=== PATIENT | female | born 1935 | race Caucasian/White ===

== ENCOUNTER 2017-08-18 21:04 | Emergency (ER) | payer MEDICARE, OTHER | END 2017-08-18 23:22 | disposition home or self-care (01) | LOC: ERS 21:04 | DX: E11.649 Type 2 diabetes mellitus with hypoglycemia without coma (principal); I10 Essential (primary) hypertension; E78.5 Hyperlipidemia, unspecified; I25.10 Atherosclerotic heart disease of native coronary artery without angina pectoris; K21.9 Gastro-esophageal reflux disease without esophagitis; Z79.82 Long term (current) use of aspirin; Z79.899 Other long term (current) drug therapy; Z79.84 Long term (current) use of oral hypoglycemic drugs | CPT/HCPCS: 36416; 99285 ==

== ENCOUNTER 2017-10-17 08:16 | Observation (INO) | payer MEDICARE, OTHER ==
[2017-10-17 09:10] LABS: #Eosinphils 0.1 thou/uL (0.0-0.7); #Lymphocytes 1.1 thou/uL (1.20-3.40); #Monocytes 0.7 thou/uL (0.11-0.59); #Neutrophils 6.2 thou/uL (1.40-6.50); %Basophils 0.5 % (0.0-1.0); %Eosinophils 1.6 % (0.0-10.0); %Lymphocytes 13.8 % (21.0-51.0); %Neutrophils 76.2 % (42.0-75.0); Mean Corpuscular HGB CONC 32.6 g/dL (32.0-36.0); Mean Corpuscular Hemoglobin 31.7 pg (27.0-31.0); Mean Corpuscular Volume 97.3 fl (81.0-99.0); Mean Platelet Volume 7.1 fL (7.4-10.4); Platelet Count 211 thou/uL (130-400); RBC Distribution Width 13.2 % (11.5-14.5); Red Blood Cell (RBC) Count 3.79 mill/uL (4.20-5.40); White Blood Cell (WBC) Count 8.2 thou/uL (4.8-10.8)
[2017-10-17 09:29] LABS: Bilirubin Negative (Negative); Blood, Urine Negative (Negative); Clarity CLOUDY (Clear); Glucose, Urine (Dipstick) Negative (Negative); Leukocyte Moderate (Negative); Nitrite Positive (Negative); Protein, Urine (Dipstick) Negative (Neg-Trace); Specific Gravity, Urine 1.015 (1.002-1.036); Urobilinogen 0.2 mg/dL (0.2-1.0)
[2017-10-17 09:32] LABS: ALT (SGPT) Less than 7 U/L (8-55); AST (SGOT) 15 U/L (5-34); Albumin 3.4 g/dL (3.4-4.8); Alkaline Phosphatase 79 U/L (40-150); Anion Gap 15 mmol/L (10-20); BUN (Urea Nitrogen) 22 mg/dL (9.8-20.1); Bilirubin, Total 0.4 mg/dL (0.2-1.2); Calc. Creatinine Clearance 0 mL/min (70-130); Carbon Dioxide 22 mmol/L (23-31); Chloride 106 mmol/L (98-107); Estimated GFR-MDRD 28; Globulin 3.5 g/dL (2.4-3.5); Glucose 82 mg/dL (83-110); Potassium 3.7 mmol/L (3.5-5.1); Protein, Total 6.9 g/dL (6.0-8.3); Sodium 139 mmol/L (136-145)
[2017-10-17 09:34] LABS: Pathc Cast-AUWi Flag 1.49 (0-2.49)
[2017-10-17 09:48] LABS: Bacteria/HPF 4+ HPF (None Seen); Hyaline Casts/LPF 0-3 HYALINE CAST LPF (0-3 Hyaline); RBC/HPF 0-3 HPF (0-3)
--- NOTE | 2017-10-17 10:24 | RAD ---
CHEST 1 VIEW: Date: 10/17/17 COMPARISON: 03/15/17. HISTORY: Weakness. Hypoglycemia. FINDINGS: Stable sternotomy wires, coronary artery calcifications. Heart size is normal. There is atheroscleros is of the aorta. Pulmonary vessels and hilum are normal. Costophrenic angles are clear. No masses or consolidation. No pneumothorax or osseous abnormalities. IMPRESSION: 1. No acute cardiopulmonary process. 2. Atherosclerosis of aorta. 3. Coronary artery disease. POS: [facility]
[2017-10-17] MEDS ORDERED: Ondansetron ODT 4 MG TAB PO PRN (12:23)
[2017-10-17] MEDS ORDERED: Ondansetron HCl/PF 4 MG/2 ML Vial IVP PRN (12:23)
[2017-10-17] MEDS ORDERED: Acetaminophen 325 MG TAB PO PRN (12:24)
[2017-10-17] MEDS ORDERED: Sodium Chloride 0.9% 1,000 ML IV SCH (12:30)
[2017-10-17] MEDS ORDERED: Dextrose 5% in Water 1,000 ML IV PRN (12:32)
[2017-10-17] MEDS ORDERED: Dextrose 50% Abboject 50 ML SYRINGE SLOW IVP PRN (12:32)
[2017-10-17 12:35] VITALS: BMI 34.7
--- NOTE | 2017-10-17 12:59 | HP ---
DATE OF ADMISSION: 10/17/2017 CHIEF COMPLAINT: Hypoglycemia, acute onset. HISTORY OF PRESENT ILLNESS: The patient is an 82-year-old female, who was brought to the e mergency room by EMS after she had an episode of seeding and staring at one spot of not being respons theodore to her this morning when she was checked by EMS, her glucose was down to 44. She was giv en glucagon, but there was a problem with the IV access, so she was brought to the emergency room for further evaluation and her glycemia was running low around 42-54. She was given oral food and some glucose orally and her glycemia went up to 82. Apparently, she is taking insulin long acting 20 unit s at night and she had similar episodes 2-3 weeks ago when she was brought to the emergency room and got stabilized and sent home. Also, during this ER visit, she was found to have some urinary tract i nfection and some acute kidney injury on the top of chronic kidney injury. The decision was made to admit her for observation to stabilize her glycemia and then send her home most likely tomorrow. PAST MEDICAL HISTORY: Positive for: 1. Coronary artery disease and status post stenting. 2. Diabetes mellitus type 2. 3. Hypertension. 4. Chronic kidney disease. 5. Chronic diastolic heart failure. 6. Morbid obesity. 7. Right-sided pulmonary nodule. 8. History of sepsis with Proteus bacteremia. 9. Hypothyroidism. PAST SURGICAL HISTORY: 1. Coronary artery bypass graft surgery. 2. PCI with stenting. 3. Hernia repair. 4. Tonsillectomy. 5. Hemorrhoidectomy. ALLERGIES: Multiple to IODINE, AMOXICILLIN, METFORMIN, METOPROLOL, METRONIDAZOLE, SULFA and RANEXA. CURRENT MEDICATIONS: Potassium, Ranexa, Nexium, Januvia, metoprolol, Lasix, Benicar, isosorbide and statin along with insulin, unknown name of insulin 20 units at night. FAMILY HISTORY: She does not know her father. Her mother had diabetes and passed in her 80s. SOCIAL HISTORY: She denies any alcohol use, tobacco use or illicit drug use. CODE STATUS: FULL. Surrogate decision maker is her , Jens Kwok. REVIEW OF SYSTEMS: CONSTITUTIONAL: Negative for fever and chills. EYES: Negative for eye pain and eye discharge. ENT: Negative for epistaxis and nasal congestion. CARDIOVASCULAR: Negative for palpitations and chest pain. RESPIRATORY: Negative for shortness of breath and cough. GASTROINTESTINAL: Negative for nausea and vomiting. GENITOURINARY: Negative for dysuria and hematuria. SKIN: Negative for rash or erythema. PSYCHIATRIC: Negative for suicidal or homicidal ideations. PHYSICAL EXAMINATION: VITAL SIGNS: Blood pressure is 126/56, pulse is 59, respiratory rate is 25 and pulse oximetry is 99% on room air. Her temperature is 98.3, it was 96.1 rectally, so she was somewhat hypothermic, most l ikely secondary to hypoglycemia. HEENT: Her head is atraumatic, normocephalic. She looks tired, somewhat sick and weak. Her pupils are responding to light properly. Sclerae nonicteric. Conjunctivae pinkish. Oral mucosa is moist. NECK: Supple, no lymphadenopathy. LUNGS: Clear. HEART: S1, S2 normal. No S3, no S4, no any murmur. ABDOMEN: Soft, nontender, bowel sounds are present, no organomegaly. EXTREMITIES: There is 1-2+ peripheral edema similar bilaterally. NEUROLOGICAL EXAMINATION: She is alert and oriented x4. There are no any sensory or motor deficits present. Cranial nerves are intact. LABORATORY AND X-RAY FINDINGS: Showed white count of 8.2, hemoglobin 12.0, hematocrit 36.9, and plat elet count is 211. Chemistries showed CO2 22, BUN 22, creatinine 1.74, glucose 882, ALT less than 7. The rest of chemistry was within normal limits. Magnesium was 2.3. Urinalysis showed some nitrite s positive, moderate leukocyte esterase, 11-20 wbc's, 4-6 squamous epithelial cells and 4+ bacteria. Chest x-ray personally reviewed by me showed status post coronary artery bypass graft and otherwise, no issues and EKG showed junctional rhythm at 55 with Q-waves in precordial leads. IMPRESSION: 1. Protracted hypoglycemic episode which is second episode. She had one approximately 2-3 weeks ago when she came to the Emergency Room and was treated and sent home. Most likely, she is just on too much medications. She is on oral hypoglycemics and insulin. We tried to identify the full list of m edications she is on. Her is going to go home and bring all medications she is taking, so re conciled this and for now we are going to hold all her medications, which can lower glucose level and we will check her glycemia every hour x3 and then every 2 hours x2, then a.c. and at bedtime. 2. Prerenal azotemia which is acute, most likely chronic kidney injury. She received 1 liter of nor mal saline in the emergency room, so we are going to probably Hep-Lock her since she has 1-2+ periphe ral edema. 3. Diabetes mellitus. She will be watched for her hypoglycemia. 4. Coronary artery disease, status post stenting, stable. 4. Hypothyroidism. 5. Chronic diastolic heart failure. 6. Right-sided pulmonary nodule per history. 7. History of sepsis with Proteus bacteremia. So, plan is admission above observation, IV Hep-Lock. Condition is fair. Activity: Bed rest and ba throom privileges with assistance. Accu-Cheks as mentioned above every 1 hour x3, then every 2 hours x2, then a.c. and at bedtime. We will reconcile her meds when the list is available from now, which she is not going to have any hypoglycemics obviously and she will be on deep venous thrombosis proph ylaxis with heparin 5000 units every 8 hours subcutaneously.
[2017-10-17] MEDS: Heparin 5,000 UNITS/ML VIAL SC SCH ×2 (14:05→20:57)
[2017-10-17] MEDS: Sodium Chloride 0.9% 1,000 ML IV SCH (14:05)
[2017-10-17] MEDS: Cipro 250 MG TAB PO SCH ×2 (14:05→20:02)
[2017-10-18] MEDS: Sodium Chloride 0.9% 1,000 ML IV SCH ×2 (01:25→12:36)
[2017-10-18 05:58] LABS: Anion Gap 15 mmol/L (10-20); BUN (Urea Nitrogen) 17 mg/dL (9.8-20.1); Calc. Creatinine Clearance 43 mL/min (70-130); Calcium 8.6 mg/dL (7.8-10.44); Carbon Dioxide 17 mmol/L (23-31); Chloride 111 mmol/L (98-107); Estimated GFR-MDRD 39; Glucose 99 mg/dL (83-110); Potassium 4.3 mmol/L (3.5-5.1); Sodium 139 mmol/L (136-145)
[2017-10-18] MEDS: Cipro 250 MG TAB PO SCH ×2 (06:20→21:02)
[2017-10-18] MEDS: Heparin 5,000 UNITS/ML VIAL SC SCH ×3 (07:57→21:02)
[2017-10-18] MEDS ORDERED: Potassium Chloride 10 MEQ TAB PO SCH (10:00)
[2017-10-18] MEDS: Furosemide 40 MG TAB PO SCH (10:22)
--- NOTE | 2017-10-18 10:30 | PRG ---
DATE OF SERVICE: 10/18/2017 SUBJECTIVE: The patient is seen and examined at bedside. She is quite confused. She pulled out on IV last night, so there is a significant change in her mental status. OBJECTIVE: VITAL SIGNS: Blood pressure is 134/80, temperature is 99.3, pulse is 78, respirations 16, and O2 sat uration is 98%. HEENT: Her head is atraumatic, normocephalic. Eyes: PERRLA. Sclerae are anicteric. Conjunctivae pinkish. Oral mucosa is moist. NECK: Supple, no lymphadenopathy. LUNGS: Few crackles at both bases. No wheezing. CARDIOVASCULAR: S1, S2 normal, no S3, no S4, or any murmur. ABDOMEN: Soft, nontender. Bowel sounds are present, no organomegaly. EXTREMITIES: No clubbing, cyanosis. There is 1-1+ peripheral edema similar bilateral in both lower extremities. LABORATORY DATA: Showed sodium of 139, potassium 4.3, chloride 111, CO2 17, BUN 17, creatinine 1.29, glucose 99. Her glycemia is ranging from 77-175. IMPRESSION: 1. Hypoglycemia, corrected. All her hypoglycemic medications were put on hold. We are going to try to use oral. No long-acting insulin and we will see what are the regimen she needs to be on. 2. Prerenal azotemia, which is acute on chronic with IV fluids. Creatinine is better. We are going to stop IV fluids. 3. Diabetes mellitus. 4. Coronary artery disease, status post stenting, stable. 5. Cough. Apparently, she had some cough prior to this hospitalization, she never told us about thi s. This is most likely viral. She is on Cipro for her urinary tract infection, which should help he r congestion, but most likely this is viral. 6. Hypothyroidism. 7. Urinary tract infection, urine culture is still pending. We will continue Cipro. 8. Chronic diastolic dysfunction/heart failure. 9. Right-sided pulmonary nodule per history. 10. History of sepsis with Proteus bacteremia. PLAN: The patient was supposed to go home today, but she has a change in her mental status. We will keep her on Cipro. The mental status change is most likely related to urinary tract infection, but according to her , she gets confused on and off and so she has some probably baseline dementia . At this point, I recommend to keep her additional 24 hours. Continue current regimen and continue Accu-Cheks a.c. and at bedtime and deep venous thrombosis prophylaxis. The patient's roberto t the list of the medications she is on finally, so we can use her home medications except for long-a cting insulin. We will see whether she is not becoming hypoglycemic on her oral regimen and this wou ld be the base to discharge her home on that regimen.
[2017-10-18] MEDS ORDERED: Dextrose 50% Abboject 50 ML SYRINGE SLOW IVP PRN (16:43)
[2017-10-18] MEDS ORDERED: Dextrose 5% in Water 1,000 ML IV PRN (16:43)
[2017-10-18] MEDS ORDERED: Rosuvastatin 10 MG TAB PO SCH (21:00)
[2017-10-18] MEDS: Metoprolol Tartrate 50 MG TAB PO SCH (21:02)
[2017-10-19] MEDS: Cipro 250 MG TAB PO SCH (05:23)
[2017-10-19] MEDS: Sodium Chloride 0.9% 1,000 ML IV SCH (05:23)
[2017-10-19] MEDS ORDERED: Potassium Chloride 10 MEQ TAB PO SCH (08:00)
[2017-10-19] MEDS: Metoprolol Tartrate 50 MG TAB PO SCH (08:21)
[2017-10-19] MEDS: Heparin 5,000 UNITS/ML VIAL SC SCH (08:21)
[2017-10-19] MEDS: Furosemide 40 MG TAB PO SCH (08:21)
[2017-10-19] MEDS ORDERED: Aspirin 81 mg Enteric Coated Tablet PO SCH (09:00)
[2017-10-19] MEDS ORDERED: Alogliptin 25 MG TAB PO SCH (09:00)
[2017-10-19 10:19] VITALS: BP 100/64; TEMP 98.8
--- NOTE | 2017-10-19 22:13 | DIS ---
DATE OF ADMISSION: 10/17/2017 DATE OF DISCHARGE: 10/19/2017 PRIMARY CARE PHYSICIAN: Igor Santos M.D. DISCHARGE DIAGNOSES: 1. Urinary tract infection. No culture sent. 2. Metabolic encephalopathy. 3. Hypoglycemia, secondary to decreased intake and insulin. 4. Diabetes mellitus, type 2, without known complications. 5. Weakness. CONSULTATIONS: None. PROCEDURES: None. HISTORY AND PHYSICAL: Ms. Acevedo is a pleasant 82-year-old female, who was admitted by Dr. Neelima murphy back on 10/17/2017. She presented to the Emergency Department for altered mental status and low blood sugar. Found to have a glucose of 44 and was subsequently admitted for UTI. HOSPITAL COURSE: The patient was seen and examined by Dr. Yao. Her insulins were held and s he was placed on observation. She was given IV fluids, as her creatinine was increased from her base line. She was watched on her blood sugars, and started on antibiotics with Cipro. Overnight, 10/17/2017 to 10/18/2017, the patient improved remarkably. Her creatinine returned normal , and her mental status was improved, and was slated to go home. She had some more confusion, as her sugar dropped a little bit, so she was watched again overnight. Today, she is awake and alert and oriented x3. Sugars have been normal to high normal. She is onesimo ating her antibiotics. Otherwise, stable for discharge with outpatient followup. PHYSICAL EXAMINATION: The patient was seen and examined on the day of discharge. Discharge plan and disposition were discussed with the patient [id number] at the bedside. DISCHARGE MEDICATIONS: 1. Aspirin 81 mg daily. 2. Cipro 250 mg p.o. b.i.d. for 5 more days. 3. Nexium 40 mg b.i.d. 4. Lasix 40 mg daily. 5. Isosorbide mononitrate 30 mg p.o. b.i.d. 6. Metoprolol tartrate 50 mg p.o. b.i.d. 7. Benicar 20 mg daily. 8. Potassium chloride 10 mEq daily. 9. Ranexa 500 mg p.o. b.i.d. 10. Crestor 10 mg p.o. at bedtime. 11. Januvia 100 mg p.o. daily. 12. Thyro-Gold one cap daily. Her Tarceva has been held at present due to hyperlipidemia, to be addressed by Dr. Santos. DISCHARGE DIET: Heart healthy diabetic diet recommended. DISCHARGE ACTIVITY: As tolerated. FOLLOWUP: With primary care physician within a week. Follow up with Dr. Bola Michelle, Cardiologi , as scheduled.
--- NOTE | 2017-11-07 14:59 | EKG ---
Test Reason : Blood Pressure : / mmHG Vent. Rate : 055 BPM Atrial Rate : 055 BPM P-R Int : 000 ms QRS Dur : 066 ms QT Int : 452 ms P-R-T Axes : 000 026 063 degrees QTc Int : 432 ms Junctional rhythm Septal infarct , age undetermined Abnormal ECG Confirmed by ZAINA ROSARIO D.O. ([id number]), production editor RALPH CAMARA ([id number]) on 11/07/2017 2:58:57 PM Referred By: Confirmed By:ZAINA ROSARIO D.O.
== END 2017-10-19 15:49 | disposition home or self-care (01) ==
LOC: ERS 08:16 → T4-B 12:30
PROVIDERS: ADMIT Internal Medicine; ATTEND Internal Medicine
DX: E11.649 Type 2 diabetes mellitus with hypoglycemia without coma (principal); N39.0 Urinary tract infection, site not specified; G93.41 Metabolic encephalopathy; I13.0 Hypertensive heart and chronic kidney disease with heart failure and stage 1 through stage 4 chronic kidney disease, or unspecified chronic kidney disease; E11.22 Type 2 diabetes mellitus with diabetic chronic kidney disease; N18.9 Chronic kidney disease, unspecified; I50.32 Chronic diastolic (congestive) heart failure; I25.10 Atherosclerotic heart disease of native coronary artery without angina pectoris; E03.9 Hypothyroidism, unspecified; R91.1 Solitary pulmonary nodule; R79.89 Other specified abnormal findings of blood chemistry; E66.01 Morbid (severe) obesity due to excess calories; Z68.33 Body mass index [BMI] 33.0-33.9, adult; Z88.1 Allergy status to other antibiotic agents; Z95.5 Presence of coronary angioplasty implant and graft; Z88.2 Allergy status to sulfonamides; Z88.8 Allergy status to other drugs, medicaments and biological substances; Z91.041 Radiographic dye allergy status; Z91.048 Other nonmedicinal substance allergy status; Z79.4 Long term (current) use of insulin; Z79.899 Other long term (current) drug therapy; Z98.890 Other specified postprocedural states; Z86.19 Personal history of other infectious and parasitic diseases; Z83.3 Family history of diabetes mellitus
CPT/HCPCS: 71010; 80048; 80053; 82947; 82962 ×3; 83735; 85025; 93005; 96360; 96361 ×3; 99285; G0378 ×2; 36415; 36416; 81003; 81015; A4216; J1644

== ENCOUNTER 2019-05-19 09:01 | Emergency (ER) | payer MEDICARE ==
[2019-05-19 09:29] LABS: #Basophils 0.1 thou/uL (0.0-0.2); #Eosinphils 0.1 thou/uL (0.0-0.7); #Lymphocytes 1.7 thou/uL (1.20-3.40); #Monocytes 0.4 thou/uL (0.11-0.59); %Basophils 1.2 % (0.0-1.0); %Eosinophils 2.5 % (0.0-10.0); %Monocytes 8.3 % (0.0-10.0); %Neutrophils 57.1 % (42.0-75.0); Hemoglobin 12.2 g/dL (12.0-16.0); Mean Corpuscular HGB CONC 32.9 g/dL (32.0-36.0); Mean Corpuscular Hemoglobin 32.6 pg (27.0-31.0); Mean Corpuscular Volume 99.1 fL (78.0-98.0); Mean Platelet Volume 7.8 fL (7.4-10.4); Platelet Count 156 thou/uL (130-400); Red Blood Cell (RBC) Count 3.74 mill/uL (4.20-5.40); White Blood Cell (WBC) Count 5.3 thou/uL (4.8-10.8)
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
--- NOTE | 2019-05-19 09:36 | RAD ---
Exam: Chest one view HISTORY:Emergency exam, posttraumatic pain Comparison: 10/17/2017 FINDINGS: Lungs: Mild interstitial prominence bilaterally Cardiac silhouette:Stable postoperative appearance. There is vascular calcification Pulmonary vessels: Stable Pleural Spaces: Clear Pneumothorax: None Osseous abnormalities: None of acuity. . IMPRESSION: Mild, bilateral interstitial opacities which may be on the basis of interstitial lung dis ease
[2019-05-19 09:54] LABS: ALT (SGPT) 18 U/L (8-55); AST (SGOT) 19 U/L (5-34); Albumin 3.7 g/dL (3.4-4.8); Alkaline Phosphatase 74 U/L (40-150); Anion Gap 11 mmol/L (10-20); BUN (Urea Nitrogen) 31 mg/dL (9.8-20.1); Bilirubin, Total 0.8 mg/dL (0.2-1.2); Calc. Creatinine Clearance 0 mL/min (70-130); Calcium 9.3 mg/dL (7.8-10.44); Carbon Dioxide 28 mmol/L (23-31); Chloride 105 mmol/L (98-107); Estimated GFR-MDRD 24; Glucose 128 mg/dL (83-110); Potassium 4.3 mmol/L (3.5-5.1); Protein, Total 6.7 g/dL (6.0-8.3); Sodium 140 mmol/L (136-145)
--- NOTE | 2019-05-19 10:23 | RAD ---
AP PELVIS LEFT HIP 3 VIEWS: HISTORY: Hip pain. Low back pain. FINDINGS: There are mild degenerative changes at both hips noted on the AP pelvis film. Two views of the left hip show mild degenerative change with mild spurring from the femoral head and acetabulum. Femoral h ead contour is preserved. No fracture or acute abnormality. SI joints are symmetric. IMPRESSION: Mild degenerative changes left hip. POS: [facility]
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
== END 2019-05-19 12:38 | disposition home or self-care (01) ==
LOC: ERS 09:01
DX: S32.019A Unspecified fracture of first lumbar vertebra, initial encounter for closed fracture (principal); I25.10 Atherosclerotic heart disease of native coronary artery without angina pectoris; E11.9 Type 2 diabetes mellitus without complications; K21.9 Gastro-esophageal reflux disease without esophagitis; E78.5 Hyperlipidemia, unspecified; I10 Essential (primary) hypertension; M19.90 Unspecified osteoarthritis, unspecified site; V89.2XXA Person injured in unspecified motor-vehicle accident, traffic, initial encounter
CPT/HCPCS: 70450; 71045; 71250; 74177; 80053; 85025; 96360; 96361; G0390

== ENCOUNTER 2020-09-13 12:13 | Emergency (ER) | payer MEDICARE ==
[2020-09-13] MEDS ORDERED: Ondansetron PF 4 MG/2 ML Vial ONE (13:00)
[2020-09-13 13:27] LABS: #Eosinphils 0.1 thou/uL (0.0-0.7); #Lymphocytes 1.7 thou/uL (1.20-3.40); #Monocytes 0.8 thou/uL (0.11-0.59); #Neutrophils 2.9 thou/uL (1.40-6.50); %Basophils 0.5 % (0.0-1.0); %Eosinophils 1.2 % (0.0-10.0); %Lymphocytes 31.1 % (21.0-51.0); %Monocytes 13.8 % (0.0-10.0); %Neutrophils 53.4 % (42.0-75.0); Hemoglobin 11.2 g/dL (12.0-16.0); Mean Corpuscular HGB CONC 33.8 g/dL (32.0-36.0); Mean Corpuscular Hemoglobin 33.8 pg (27.0-31.0); Mean Corpuscular Volume 99.9 fL (78.0-98.0); RBC Distribution Width 12.8 % (11.5-14.5); Red Blood Cell (RBC) Count 3.32 mill/uL (4.20-5.40); White Blood Cell (WBC) Count 5.4 thou/uL (4.8-10.8)
[2020-09-13 13:45] LABS: MDiff Complete? YES; Mean Platelet Volume 6.9 fL (7.4-10.4); Platelet Count 119 thou/uL (130-400); Platelet Morphology Comment Appears Decreased; Polychromasia SLIGHT = 2-3 cells (100X) (0-2/hpf)
[2020-09-13 13:49] LABS: ALT (SGPT) 46 U/L (8-55); AST (SGOT) 62 U/L (5-34); Albumin 3.1 g/dL (3.4-4.8); Alkaline Phosphatase 57 U/L (40-110); Anion Gap 14 mmol/L (10-20); BUN (Urea Nitrogen) 27 mg/dL (9.8-20.1); Bilirubin, Total 0.7 mg/dL (0.2-1.2); Calc. Creatinine Clearance 0 mL/min (70-130); Calcium 8.4 mg/dL (7.8-10.44); Carbon Dioxide 23 mmol/L (23-31); Chloride 104 mmol/L (98-107); Estimated GFR-MDRD 23; Globulin 2.9 g/dL (2.4-3.5); Glucose 111 mg/dL (83-110); Lipase 12 U/L (8-78); Potassium 3.7 mmol/L (3.5-5.1); Sodium 137 mmol/L (136-145)
--- NOTE | 2020-09-13 14:19 | RAD ---
PORTABLE CHEST: 09/13/20 COMPARISON: A 04/03/20 study. HISTORY: Syncope. Heart size within normal limits with postop sternotomy changes. Chronic appearing lung changes are se en without any definite focal infiltrative process. IMPRESSION: Chronic appearing lung change. POS: [facility]
[2020-09-13 14:33] LABS: Bilirubin Negative (Negative); Blood, Urine Small (Negative); Glucose, Urine (Dipstick) Negative (Negative); Ketone, Urine Negative (Negative); Leukocyte Moderate (Negative); Nitrite Negative (Negative); Protein, Urine (Dipstick) Trace mg/dL (Neg-Trace); Specific Gravity, Urine 1.015 (1.005-1.030)
[2020-09-13 14:34] LABS: Clarity Hazy (Clear)
== END 2020-09-13 15:32 | disposition home or self-care (01) ==
LOC: ERS 12:13
DX: N30.00 Acute cystitis without hematuria (principal); M62.81 Muscle weakness (generalized); E11.9 Type 2 diabetes mellitus without complications; K21.9 Gastro-esophageal reflux disease without esophagitis; E78.00 Pure hypercholesterolemia, unspecified; I10 Essential (primary) hypertension; M19.90 Unspecified osteoarthritis, unspecified site; I25.10 Atherosclerotic heart disease of native coronary artery without angina pectoris
CPT/HCPCS: 36415; 71045; 80053; 81003; 81015; 83690; 83880; 84484; 85025; 87086; 93005; 96365; 96375; J1956; J2405

== ENCOUNTER 2020-09-15 14:51 | Inpatient (IN) | payer MEDICARE ==
[2020-09-15] MEDS ORDERED: Vancomycin 1 GM/200 ML BAG ONE (15:20)
[2020-09-15] MEDS ORDERED: Ondansetron PF 4 MG/2 ML Vial ONE (15:20)
[2020-09-15 15:39] LABS: #Lymphocytes 1.1 thou/uL (1.20-3.40); #Monocytes 0.6 thou/uL (0.11-0.59); #Neutrophils 4.8 thou/uL (1.40-6.50); %Basophils 0.7 % (0.0-1.0); %Eosinophils 0.1 % (0.0-10.0); %Lymphocytes 17.4 % (21.0-51.0); %Monocytes 8.4 % (0.0-10.0); %Neutrophils 73.4 % (42.0-75.0); Hemoglobin 11.9 g/dL (12.0-16.0); Mean Corpuscular HGB CONC 35.3 g/dL (32.0-36.0); Mean Corpuscular Hemoglobin 35.1 pg (27.0-31.0); Mean Corpuscular Volume 99.4 fL (78.0-98.0); Mean Platelet Volume 7.2 fL (7.4-10.4); Platelet Count 155 thou/uL (130-400); RBC Distribution Width 12.9 % (11.5-14.5); Red Blood Cell (RBC) Count 3.39 mill/uL (4.20-5.40); White Blood Cell (WBC) Count 6.5 thou/uL (4.8-10.8)
--- NOTE | 2020-09-15 16:04 | RAD ---
XR Chest 1 View Portable HISTORY: Chest pain, nausea COMPARISON: 09/13/2020 FINDINGS: The heart size is stable. Changes of median sternotomy are again seen. The lungs are well e xpanded without focal areas of consolidation, pneumothorax or pleural effusions. Chronic lung changes are stable.. IMPRESSION: No radiographic evidence of acute cardiopulmonary process.
[2020-09-15 16:05] LABS: ALT (SGPT) 53 U/L (8-55); AST (SGOT) 79 U/L (5-34); Albumin 3.5 g/dL (3.4-4.8); Alkaline Phosphatase 61 U/L (40-110); Anion Gap 20 mmol/L (10-20); BUN (Urea Nitrogen) 27 mg/dL (9.8-20.1); Bilirubin, Total 0.8 mg/dL (0.2-1.2); Calc. Creatinine Clearance 0 mL/min (70-130); Calcium 8.8 mg/dL (7.8-10.44); Carbon Dioxide 21 mmol/L (23-31); Chloride 103 mmol/L (98-107); Estimated GFR-MDRD 22; Globulin 3.3 g/dL (2.4-3.5); Glucose 109 mg/dL (83-110); Potassium 4.9 mmol/L (3.5-5.1); Protein, Total 6.8 g/dL (6.0-8.3); Sodium 139 mmol/L (136-145)
[2020-09-15 16:23] LABS: CK (CPK) 887 U/L (29-168); Lipase 6 U/L (8-78)
[2020-09-15 16:24] LABS: CKMB 3.9 ng/mL (0-6.6)
[2020-09-15 17:08] LABS: Bilirubin Negative (Negative); Blood, Urine 1+ (Negative); Clarity Turbid (Clear); Glucose, Urine (Dipstick) Normal (Negative); Ketone, Urine Trace mg/dL (Negative); Leukocyte 500 Leu/uL (Negative); Nitrite Negative (Negative); Protein, Urine (Dipstick) 100 mg/dL (Neg-Trace); RBC/HPF 0-3 HPF (0-3); Renal Epithelial 0-3 HPF (None Seen); Specific Gravity, Urine 1.016 (1.002-1.036); Squamous Epithelial 0-3 HPF (0-3); Transitional Epithelial 0-3 HPF (None Seen); Urobilinogen Normal mg/dL (Less than 2); WBC/HPF Greater than 50 HPF (0-3); pH, Urine 7.5 (5.0-9.0)
[2020-09-15 17:23] LABS: Bacteria/HPF 1+ HPF (None Seen)
[2020-09-15 17:24] LABS: Oval Fat Bodies/HPF 1+ HPF (None Seen)
--- NOTE | 2020-09-15 18:22 | CT ---
CT ABDOMEN AND PELVIS WITHOUT CONTRAST: 09/15/20 HISTORY: Recently diagnosed UTI. Nausea. Abdominal pain. COMPARISON: 05/19/19. FINDINGS: Absence of oral and IV contrast reduces the sensitivity of exam particularly for evaluation of solid organs and bowel. The lung bases are unremarkable. No free air or free fluid is seen in the abdomen or pelvis. The mary ent is post cholecystectomy. No calculi is seen in the kidneys, ureters, or the urinary bladder. No hydroureteronephrosis is seen on either side. Prominent extrarenal pelves, right greater than left are again noted. There are vascular calcifications without evidence of aneurysmal dilatation of the abdominal aorta. D egenerative changes in the spine are again seen. Wedge compression of lumbar vertebral bodies again n oted. There is fecal material in the colon. There is sigmoid diverticulosis. The small bowel loops ar e not abnormally dilated. The patient is post hysterectomy. IMPRESSION: 1. No CT evidence of urinary tract calculi or obstruction. 2. Sigmoid diverticulosis. POS: [facility]
[2020-09-15 20:12] LABS: Troponin I 0.013 ng/mL (< 0.028)
[2020-09-15] MEDS ORDERED: Ondansetron PF 4 MG/2 ML Vial IVP PRN (20:30)
[2020-09-15] MEDS ORDERED: HumaLOG 300 UNITS/3 ML VIAL SC PRN (20:32)
[2020-09-15] MEDS ORDERED: Dextrose 50% Abboject 50 ML SYRINGE SLOW IVP PRN (20:32)
[2020-09-15] MEDS ORDERED: Dextrose 5% in Water 1,000 ML IV PRN (20:32)
[2020-09-15 21:34] LABS: Troponin I 0.014 ng/mL (< 0.028)
--- NOTE | 2020-09-15 22:05 | HP ---
REASON FOR ADMISSION: Decreased oral intake and increased swelling of the lower extremities and weakness. HISTORY OF PRESENT ILLNESS: This is an 84-year-old female patient, who has dementia, unable to provide much history, presenting to the emergency room, brought back by her niece. She came in two days ago to the ER and it was reported that she was having nausea, vomiting, and generalized weakness that started two days prior. Also, difficulty with ambulation. She was diagnosed with a UTI. She was discharged on p.o. Levaquin, but the patient continued to have nausea and has not been able to take her p.o. medication. She was brought back. In the ER, she appeared to be comfortable, in no acute distress. I did speak with her niece over the phone. The niece tells me that patient continues to have poor oral intake and decreased fluid intake. Also, difficulty with ambulation. She usually uses a mobile chair but now she cannot even do that. Also, increased swelling of her bilateral lower extremities and that used to resolve, but currently not improving at all and getting worse. PAST MEDICAL HISTORY: 1. Coronary artery disease, status post CABG. 2. Dementia. 3. Hypothyroidism. 4. Diabetes, type 2. 5. Obesity. 6. Right-sided pulmonary nodule. 7. Sepsis with Proteus bacteremia. 8. Chronic kidney disease. 9. High blood pressure. 10. Chronic diastolic heart failure. 11. Status post hernia repair. 12. Tonsillectomy. 13. Hemorrhoidectomy. ALLERGIES: IODINE, AMOXICILLIN, METFORMIN, METOPROLOL, FLAGYL, SULFA, AND RANEXA. FAMILY HISTORY: As per records in 2017 showed it was noted that her mother was a diabetic. SOCIAL HISTORY: She does not smoke. Does not drink alcohol. REVIEW OF SYSTEMS: Unable to obtain due to her confusion. PHYSICAL EXAMINATION: GENERAL: She is awake, alert, but disoriented. VITAL SIGNS: Her blood pressure is 100/64, heart rate of 93, temperature is 98.8, and saturating 95% room air. HEENT: Head is nontraumatic, normocephalic. Pupils equal, reactive. Extraocular movements are intact. Nonicteric sclerae. Well-injected conjunctivae. Oral mucosa normal. Nasal mucosa normal. NECK: Supple. No adenopathy. No murmur. Thyroid is not palpable. Trachea is midline. No supraclavicular adenopathy. HEART: S1, S2, regular. No murmur. No gallop. No friction rubs. No displacement of PMI. LUNGS: Clear to auscultation bilaterally. No wheezes, no rhonchi, no crackles. Bowel sounds are positive. ABDOMEN: Nontender. EXTREMITIES: She does have bilateral lower extremity edema. NEUROLOGIC EXAM: Unable to fully assess. Cranial nerves appeared to be intact. She is moving all of her four extremities. LABORATORY STUDIES: Blood work shows a WBC of 6.5, hemoglobin of 11.9, platelets of 155. Sodium of 139, potassium 4.9, bicarb of 21, BUN 27, and creatinine 2.16. CK of 887, troponin 0.033, and BNP 133.4. Urinalysis positive for infection. CT of the abdomen shows no urinary tract calculi or obstruction. Sigmoid diverticulosis. Chest x-ray shows no evidence of cardiopulmonary process. EKG shows normal sinus rhythm. No major change noted compared to previous EKG as per my read. ASSESSMENT AND PLAN: This is an 84-year-old female patient presenting with persistence of nausea and weakness, increased bilateral lower extremity edema, found to have urinary tract infection. She is unable to take any p.o. medication and for that reason, she is being admitted. Also, she was found to have a mild rhabdo and worsening of her kidney function. Cardiac: Patient has abnormal troponin, could be due to her kidney insufficiency. We will have her on telemetry. We will recycle her cardiac enzymes. We will provide her with blood pressure control. Endocrinology. She is diabetic. She will be on insulin sliding scale. For her urinary tract infection, she did receive a dose of Levaquin in the ER. We will maintain her on IV Cipro adjusted to her kidney function. Awaiting results of her urine culture and sensitivity. patient does have worsening of her renal function. She does have mild rhabdo. We will gently hydrate her and recheck her labs in the morning. Patient does have difficulty with ambulation. We will have Physical Therapy evaluate her. For deep venous thrombosis prophylaxis, Lovenox. Since her niece did mention that there was increased bilateral lower extremity edema, we will do a Doppler of lower extremity to rule out deep venous thrombosis. I was not able to discuss code status with her because of dementia. Her niece does not have a medical power of attorney recruiter and her who has Parkinson's disease and the niece said that she most likely will not be able to get an accurate response. For now, she will be full code. Job ID: [id number]
[2020-09-15 23:41] VITALS: BMI 29.5
[2020-09-16] MEDS: Heparin 5,000 UNITS/ML VIAL SC SCH ×4 (01:43→21:29)
[2020-09-16] MEDS: Sodium Chloride 0.9% 1,000 ML IV SCH ×2 (01:43→08:03)
[2020-09-16] MEDS ORDERED: Heparin 5,000 UNITS/ML VIAL SC SCH (01:45)
[2020-09-16 04:19] LABS: #Lymphocytes 1.1 thou/uL (1.20-3.40); #Monocytes 0.8 thou/uL (0.11-0.59); #Neutrophils 4.5 thou/uL (1.40-6.50); %Basophils 0.1 % (0.0-1.0); %Eosinophils 0.3 % (0.0-10.0); %Lymphocytes 16.8 % (21.0-51.0); %Monocytes 12.6 % (0.0-10.0); %Neutrophils 70.1 % (42.0-75.0); Hemoglobin 9.9 g/dL (12.0-16.0); Mean Corpuscular HGB CONC 34.6 g/dL (32.0-36.0); Mean Platelet Volume 7.9 fL (7.4-10.4); Platelet Count 140 thou/uL (130-400); RBC Distribution Width 12.9 % (11.5-14.5); Red Blood Cell (RBC) Count 2.82 mill/uL (4.20-5.40); White Blood Cell (WBC) Count 6.4 thou/uL (4.8-10.8)
[2020-09-16 04:44] LABS: Anion Gap 15 mmol/L (10-20); BUN (Urea Nitrogen) 25 mg/dL (9.8-20.1); CK (CPK) 749 U/L (29-168); Calc. Creatinine Clearance 24 mL/min (70-130); Calcium 8.1 mg/dL (7.8-10.44); Carbon Dioxide 20 mmol/L (23-31); Chloride 107 mmol/L (98-107); Estimated GFR-MDRD 26; Glucose 119 mg/dL (83-110); Potassium 3.5 mmol/L (3.5-5.1); Sodium 138 mmol/L (136-145)
--- NOTE | 2020-09-16 08:03 | ULT ---
ULTRASOUND DOPPLER DUPLEX VENOUS LEFT LOWER EXTREMITY: DATE: 09/16/2020 HISTORY: Left lower extremity edema in 84-year-old female TECHNIQUE: Grayscale, color-flow, and spectral analysis, of major veins of left lower extremity. FINDINGS: There is demonstration of blood flow with normal compressibility, of the left common femoral, profund a femoral, greater saphenous, femoral, popliteal, and posterior tibial, veins. IMPRESSION: Negative. No deep venous thrombosis of left lower extremity.
[2020-09-16] MEDS ORDERED: Enoxaparin Sodium 30 MG/0.3 ML SYRINGE SC SCH (09:00)
[2020-09-16] MEDS ORDERED: Metoclopramide HCl 10 MG TAB PO PRN (11:48)
--- NOTE | 2020-09-16 12:16 | PDOC.HOSPP ---
- Subjective Encounter Date: 09/16/20 Encounter Time: 12:12 Subjective: Ms. Acevedo was seen today in follow-up UTI and generalized weakness. She has advanced dementia, and is confused. She says she feels fine, and does not have any nausea or vomiting today. Her sitter, says she ate about 1/2 of her breakfast, and has kept it down. - Objective Vital Signs & Weight: Vital Signs (12 hours) Temp Pulse Resp BP Pulse Ox 09/16/20 11:49 97.9 F 90 17 95/46 L 09/16/20 08:00 100 09/16/20 07:53 98.6 F 84 17 99/48 L 100 09/16/20 04:00 98.3 F 97 18 112/55 L 98 Weight Weight 156 lb Result Diagrams: 09/16/20 03:52 09/16/20 03:52 Additional Labs: Accuchecks 09/16/20 09/16/20 11:24 05:54 POC Glucose 186 H 121 H Hospitalist ROS - Medication Medications: Active Medications Generic Name Dose Route Start Last Admin Trade Name Freq PRN Reason Stop Dose Admin Heparin Sodium (Porcine) 5,000 units 09/15/20 21:00 09/16/20 08:02 Heparin 5,000 Units/Ml Vial SC Not Given TID ANNETTE Sodium Chloride 1,000 mls @ 75 mls/hr 09/15/20 20:30 09/16/20 08:03 Normal Saline 0.9% IV 1,000 mls .[id number] ANNETTE Administration Insulin Human Lispro 0 units 09/15/20 20:32 09/16/20 12:06 Humalog 300 Units/3 Ml Vial SC 2 unit .MILD SLIDING SCALE PRN Administration Mild Correctional Scale - Exam Eye: PERRL, anicteric sclera Heart: RRR, no murmur, no gallops, no rubs, normal peripheral pulses Respiratory: CTAB, no wheezes, no rales, no ronchi, normal chest expansion, no tachypnea Gastrointestinal: soft, non-tender, non-distended, normal bowel sounds, no palpable masses, no hepatomegaly Extremities: 2+ LE edema (+ edema in both lower extremities, no warmth) Hosp A/P (1) UTI (urinary tract infection) Status: Acute (2) Generalized weakness Code(s): R53.1 - WEAKNESS Status: Acute (3) CAD (coronary artery disease) Code(s): I25.10 - ATHSCL HEART DISEASE OF [place] CORONARY ARTERY W/O ANG PCTRS Status: Chronic (4) DM type 2 (diabetes mellitus, type 2) Status: Chronic (5) Hypertension Code(s): I10 - ESSENTIAL (PRIMARY) HYPERTENSION Status: Chronic - Plan * Generalized weakness due to UTI- will continue Cipro, and await the results of the urine culture * HTN- her blood pressure has been on the lower side- will give 1/2 her dose of Metoprolol, and hold Isorsorbide and Ranexa for SBP <100 * DM- will re-start her home medications * CAD- stable * Dementia- stable * Continue PT, and she may need a stay in [facility] or Rehab prior to discharge.
[2020-09-16 18:28] LABS: SARS-CoV-2 MS2 Positive; SARS-CoV-2 N Gene Negative; SARS-CoV-2 S Gene Negative; SARS-CoV-2 by NAA Not Detected (NotDetected); SARS-CoV-2 orf1ab Negative
[2020-09-16] MEDS ORDERED: Metoprolol Tartrate 50 MG TAB PO SCH (21:00)
[2020-09-16] MEDS: Rosuvastatin 5 MG TAB PO SCH ×2 (21:27→21:32)
[2020-09-16] MEDS: Metoprolol Tartrate 25 MG TAB PO SCH ×2 (21:28→21:32)
[2020-09-16] MEDS: Isosorbide Dinitrate 20 MG TAB PO SCH (21:28)
[2020-09-17 04:35] LABS: #Lymphocytes 1.4 thou/uL (1.20-3.40); #Monocytes 0.7 thou/uL (0.11-0.59); #Neutrophils 2.9 thou/uL (1.40-6.50); %Basophils 0.2 % (0.0-1.0); %Eosinophils 0.6 % (0.0-10.0); %Lymphocytes 27.3 % (21.0-51.0); %Monocytes 13.6 % (0.0-10.0); %Neutrophils 58.3 % (42.0-75.0); Hemoglobin 9.6 g/dL (12.0-16.0); Mean Corpuscular HGB CONC 33.8 g/dL (32.0-36.0); Mean Corpuscular Hemoglobin 34.1 pg (27.0-31.0); Mean Platelet Volume 7.1 fL (7.4-10.4); Platelet Count 147 thou/uL (130-400); Red Blood Cell (RBC) Count 2.83 mill/uL (4.20-5.40); White Blood Cell (WBC) Count 4.9 thou/uL (4.8-10.8)
[2020-09-17 04:57] LABS: Anion Gap 14 mmol/L (10-20); BUN (Urea Nitrogen) 23 mg/dL (9.8-20.1); Calc. Creatinine Clearance 25 mL/min (70-130); Calcium 8.3 mg/dL (7.8-10.44); Carbon Dioxide 18 mmol/L (23-31); Chloride 109 mmol/L (98-107); Estimated GFR-MDRD 26; Glucose 133 mg/dL (83-110); Potassium 3.4 mmol/L (3.5-5.1); Sodium 138 mmol/L (136-145)
[2020-09-17] MEDS: Sodium Chloride 0.9% 1,000 ML IV SCH ×2 (08:07→13:48)
[2020-09-17] MEDS: Aspirin 81 mg Enteric Coated Tablet PO SCH (08:47)
[2020-09-17] MEDS: Potassium Chloride 20 MEQ TAB PO SCH (08:47)
[2020-09-17] MEDS: Ezetimibe 10 MG TAB PO SCH (08:47)
[2020-09-17] MEDS: Metoprolol Tartrate 25 MG TAB PO SCH ×2 (08:48→21:05)
[2020-09-17] MEDS: Insulin Glargine 10 UNITS in Pre-Filled Syringe 1 EACH SC SCH (08:48)
[2020-09-17] MEDS: Isosorbide Dinitrate 20 MG TAB PO SCH ×2 (08:48→21:06)
[2020-09-17] MEDS: Heparin 5,000 UNITS/ML VIAL SC SCH ×3 (08:48→21:03)
[2020-09-17] MEDS ORDERED: Non-Formulary Item 1 EACH (Insulin Degludec [Tresiba Flextouch U-100] 100 UNIT/ML Insuln. SC SCH (09:00)
--- NOTE | 2020-09-17 10:18 | PDOC.HOSPP ---
- Subjective Encounter Date: 09/17/20 Encounter Time: 10:15 Subjective: Ms. Acevedo was seen today in follow-up of UTI and generalized weakness. She is confused, but does not have any complaints. - Objective Vital Signs & Weight: Vital Signs (12 hours) Temp Pulse Resp BP Pulse Ox 09/17/20 07:12 98.4 F 92 14 130/60 98 09/17/20 04:00 97.8 F 96 14 118/59 L 09/17/20 00:00 122/58 L Weight Admit Weight 156 lb Weight 158 lb I&O: 09/16/20 09/17/20 09/18/20 06:59 06:59 06:59 Intake Total 1380 Output Total 400 Balance 980 Result Diagrams: 09/17/20 03:57 09/17/20 03:57 Additional Labs: Accuchecks 09/17/20 09/16/20 05:51 11:24 POC Glucose 126 H 186 H Hospitalist ROS - Medication Medications: Active Medications Generic Name Dose Route Start Last Admin Trade Name Leslie PRN Reason Stop Dose Admin Aspirin 81 mg 09/17/20 09:00 09/17/20 08:47 Aspirin 81 Mg Enteric Coated Tablet PO 81 mg DAILY ANNETTE Administration Ezetimibe 10 mg 09/17/20 09:00 09/17/20 08:47 Ezetimibe 10 Mg Tab PO 10 mg DAILY ANNETTE Administration Heparin Sodium (Porcine) 5,000 units 09/15/20 21:00 09/17/20 08:48 Heparin 5,000 Units/Ml Vial SC Not Given TID ANNETTE Ciprofloxacin/Dextrose 400 mg/ 200 mls @ 200 mls/hr 09/16/20 17:00 09/16/20 16:43 Device IVPB 200 mls Q24H ANNETTE Administration Sodium Chloride 1,000 mls @ 75 mls/hr 09/15/20 20:30 09/17/20 08:07 Normal Saline 0.9% IV Not Given .[id number] ANNETTE Insulin Glargine 10 units/ 0.1 mls @ 0 mls/hr 09/17/20 09:00 09/17/20 08:48 Miscellaneous Medication SC 0.1 mls QAM ANNETTE Administration As Directed Insulin Human Lispro 0 units 09/15/20 20:32 09/16/20 12:06 Humalog 300 Units/3 Ml Vial SC 2 unit .MILD SLIDING SCALE PRN Administration Mild Correctional Scale Isosorbide Dinitrate 30 mg 09/16/20 21:00 09/17/20 08:48 Isosorbide Dinitrate 20 Mg Tab PO 30 mg BID ANNETTE Administration Metoprolol Tartrate 25 mg 09/16/20 21:00 09/17/20 08:48 Metoprolol Tartrate 25 Mg Tab PO 25 mg BID ANNETTE Administration Potassium Chloride 20 meq 09/17/20 09:00 09/17/20 08:47 Potassium Chloride 20 Meq Tab PO 20 meq DAILY ANNETTE Administration Ranolazine 500 mg 09/16/20 21:00 09/17/20 08:48 Ranolazine 500 Mg Tab PO 500 mg BID ANNETTE Administration Rosuvastatin Calcium 5 mg 09/16/20 21:00 09/16/20 21:32 Rosuvastatin 5 Mg Tab PO Not Given HS ANNETTE - Exam Eye: PERRL, anicteric sclera Heart: RRR, no murmur, no gallops, no rubs, normal peripheral pulses Respiratory: CTAB, no wheezes, no rales, no ronchi, normal chest expansion, no tachypnea, normal percussion Gastrointestinal: soft, non-distended Extremities: 2+ LE edema (2-3+ pitting edema in both lower extremities) Hosp A/P (1) UTI (urinary tract infection) Status: Acute (2) Generalized weakness Code(s): R53.1 - WEAKNESS Status: Acute (3) CAD (coronary artery disease) Code(s): I25.10 - ATHSCL HEART DISEASE OF [place] CORONARY ARTERY W/O ANG PCTRS Status: Chronic (4) DM type 2 (diabetes mellitus, type 2) Status: Chronic Qualifiers: Chronic kidney disease stage: stage 4 (severe) (5) Hypertension Code(s): I10 - ESSENTIAL (PRIMARY) HYPERTENSION Status: Chronic - Plan * Generalized weakness due to UTI- will continue Cipro, urine cultures are negative so far * HTN- her blood pressure is recovering- continue her home medications * DM- blood glucose is stable * CAD- stable * Dementia- stable * Continue PT, and she may need a stay in [facility] or Rehab prior to di laura.
[2020-09-17] MEDS: Rosuvastatin 5 MG TAB PO SCH (21:08)
[2020-09-18] MEDS: Sodium Chloride 0.9% 1,000 ML IV SCH (04:17)
[2020-09-18] MEDS: Metoprolol Tartrate 25 MG TAB PO SCH (09:01)
[2020-09-18] MEDS: Isosorbide Dinitrate 20 MG TAB PO SCH (09:01)
[2020-09-18] MEDS: Aspirin 81 mg Enteric Coated Tablet PO SCH (09:01)
[2020-09-18] MEDS: Heparin 5,000 UNITS/ML VIAL SC SCH (09:02)
[2020-09-18] MEDS: Potassium Chloride 20 MEQ TAB PO SCH (09:02)
[2020-09-18] MEDS: Ezetimibe 10 MG TAB PO SCH (09:02)
[2020-09-18] MEDS: Insulin Glargine 10 UNITS in Pre-Filled Syringe 1 EACH SC SCH (10:03)
--- NOTE | 2020-09-18 13:54 | PDOC.HOSPP ---
- Subjective Encounter Date: 09/18/20 Encounter Time: 13:52 Subjective: Ms. Acevedo was seen today in follow-up of UTI and generalized weaknes. She does not have any complaints today. - Objective Vital Signs & Weight: Vital Signs (12 hours) Temp Pulse Pulse Resp BP BP BP 09/18/20 12:00 97.4 F L 61 20 99/60 09/18/20 11:04 66 96/42 L 09/18/20 08:00 09/18/20 07:30 97.5 F L 55 L 20 96/42 L 09/18/20 04:00 98.1 F 70 18 98/59 L Pulse Ox Pulse Ox 09/18/20 12:00 99 09/18/20 11:04 97 09/18/20 08:00 99 09/18/20 07:30 99 09/18/20 04:00 100 Weight Admit Weight 156 lb Weight 171 lb 14.4 oz I&O: 09/17/20 09/18/20 09/19/20 06:59 06:59 06:59 Intake Total 1380 1400 400 Output Total 400 Balance 980 1400 400 Result Diagrams: 09/17/20 03:57 09/17/20 03:57 Additional Labs: Accuchecks 09/18/20 09/18/20 09/17/20 11:11 04:31 19:21 POC Glucose 163 H 141 H 116 H 09/17/20 16:23 POC Glucose 157 H Hospitalist ROS - Medication Medications: Active Medications Generic Name Dose Route Start Last Admin Trade Name Freq PRN Reason Stop Dose Admin Aspirin 81 mg 09/17/20 09:00 09/18/20 09:01 Aspirin 81 Mg Enteric Coated Tablet PO 81 mg DAILY ANNETTE Administration Ezetimibe 10 mg 09/17/20 09:00 09/18/20 09:02 Ezetimibe 10 Mg Tab PO 10 mg DAILY ANNETTE Administration Heparin Sodium (Porcine) 5,000 units 09/15/20 21:00 09/18/20 09:02 Heparin 5,000 Units/Ml Vial SC 5,000 units TID ANNETTE Administration Ciprofloxacin/Dextrose 400 mg/ 200 mls @ 200 mls/hr 09/16/20 17:00 09/17/20 16:26 Device IVPB 200 mls Q24H ANNETTE Administration Sodium Chloride 1,000 mls @ 75 mls/hr 09/15/20 20:30 09/18/20 04:17 Normal Saline 0.9% IV 1,000 mls .[id number] ANNETTE Administration Insulin Glargine 10 units/ 0.1 mls @ 0 mls/hr 09/17/20 09:00 09/18/20 10:03 Miscellaneous Medication SC 0.1 mls QAM ANNETTE Administration As Directed Insulin Human Lispro 0 units 09/15/20 20:32 09/16/20 12:06 Humalog 300 Units/3 Ml Vial SC 2 unit .MILD SLIDING SCALE PRN Administration Mild Correctional Scale Isosorbide Dinitrate 30 mg 09/16/20 21:00 09/18/20 09:01 Isosorbide Dinitrate 20 Mg Tab PO 30 mg BID ANNETTE Administration Metoprolol Tartrate 25 mg 09/16/20 21:00 09/18/20 09:01 Metoprolol Tartrate 25 Mg Tab PO 25 mg BID ANNETTE Administration Potassium Chloride 20 meq 09/17/20 09:00 09/18/20 09:02 Potassium Chloride 20 Meq Tab PO 20 meq DAILY ANNETTE Administration Ranolazine 500 mg 09/16/20 21:00 09/18/20 09:01 Ranolazine 500 Mg Tab PO 500 mg BID ANNETTE Administration Rosuvastatin Calcium 5 mg 09/16/20 21:00 09/17/20 21:08 Rosuvastatin 5 Mg Tab PO 5 mg HS ANNETTE Administration - Exam Eye: PERRL, anicteric sclera Heart: RRR, no murmur, no gallops, no rubs, normal peripheral pulses Respiratory: CTAB, no wheezes, no rales, no ronchi, normal chest expansion, no tachypnea, normal percussion Gastrointestinal: soft, non-tender, non-distended, normal bowel sounds, no palpable masses, no hepatomegaly Extremities: 2+ LE edema Hosp A/P (1) UTI (urinary tract infection) Status: Acute (2) Generalized weakness Code(s): R53.1 - WEAKNESS Status: Acute (3) CAD (coronary artery disease) Code(s): I25.10 - ATHSCL HEART DISEASE OF [place] CORONARY ARTERY W/O ANG PCTRS Status: Chronic (4) DM type 2 (diabetes mellitus, type 2) Status: Chronic Qualifiers: Chronic kidney disease stage: stage 4 (severe) (5) Hypertension Code(s): I10 - ESSENTIAL (PRIMARY) HYPERTENSION Status: Chronic - Plan * Generalized weakness due to UTI- will continue Cipro, urine cultures are grew Cornibacterium, and this is likely a contaminant * HTN- her blood pressure is still running low. Will decrease the dose of Isosorbide, and continue with the lower dose of Metoprolol * DM- blood glucose is stable * CAD- stable * Dementia- stable * The family has decided to bring the patient home on Home [facility]
[2020-09-18 16:58] VITALS: BP 107/60; TEMP 98
--- NOTE | 2020-09-18 23:00 | PDOC.DS.DS ---
Provider - Provider Date of Admission: 09/15/20 20:12 Date of Discharge: 09/18/20 Admitting Provider: Patricia Voss MD Primary Care Physician: Igor Santos MD Course - Hospital Course Hospital Course: Ms. Acevedo was seen today in follow-up of UTI and generalized weakness. She was recently seen and treated in the ER, and was diagnosed with a UTI. She was prescribed Levaquin and discharged home. Her niec who care for her noted that she had continued weakness, and was developing nausea. She became so weak, she could barely stand. As a result she brought her to the emergency room, where she was evaluated, and found to have a persistent UTI. She was admitted and started on IV Cipro. She improved dramatically overnight, but still remained relatively weak. She also has a history of advanced Dementia. Cultures were unrevealing, and grew Cornibacterium, in low colony forming counts, and was considered a contaminant. Her niece and other family members decided to place the patient on Hospice, due to her gradual overall decline and advanced age. Once Hospice was arranged she was discharged home. Pertinent Studies: CT Scan of the abdomen and pelvis Resuscitation Status: 09/15/20 20:16 Resuscitation Status Routine Resuscitation Status: FULL: Full Resuscitation - Labs Lab Results: 09/17/20 03:57 09/17/20 03:57 Abnormal Lab Results - Last 48 hrs 09/17/20 03:57: Potassium 3.4 L, Chloride 109 H, Carbon Dioxide 18 L, BUN 23 H, Creatinine 1.84 H 09/17/20 03:57: RBC 2.83 L, Hgb 9.6 L, Hct 28.5 L, MCV 101.0 H, MCH 34.1 H, MPV 7.1 L, Monocytes % 13.6 H, Monocytes # 0.7 H Microbiology - Entire Visit 09/15/20 15:34 Venous blood - Left Hand Blood Culture - Preliminary NO GROWTH AT 48 HOURS 09/15/20 15:25 Venous blood - Right Hand Blood Culture - Preliminary NO GROWTH AT 48 HOURS 09/15/20 16:29 Urine Straight Catheter Urine Culture - Final Presumptive Corynebacterium sp - Physical Exam Vitals: Vital Signs (12 hours) Temp Pulse Pulse Resp BP BP Pulse Ox 09/18/20 16:00 98.0 F 66 18 107/60 100 09/18/20 12:00 97.4 F L 61 20 99/60 99 09/18/20 11:04 66 96/42 L Pulse Ox 09/18/20 16:00 09/18/20 12:00 09/18/20 11:04 97 Weight Admit Weight 156 lb Weight 171 lb 14.4 oz Physical Exam: The patient was seen and examined on the day of discharge. Problem - Problem (1) UTI (urinary tract infection) Status: Acute (2) Generalized weakness Code(s): R53.1 - WEAKNESS Status: Acute (3) CAD (coronary artery disease) Code(s): I25.10 - ATHSCL HEART DISEASE OF [place] CORONARY ARTERY W/O ANG PCTRS Status: Chronic (4) DM type 2 (diabetes mellitus, type 2) Status: Chronic Qualifiers: Chronic kidney disease stage: stage 4 (severe) (5) Hypertension Code(s): I10 - ESSENTIAL (PRIMARY) HYPERTENSION Status: Chronic Plan - Discharge Medications Prescriptions: Isosorbide Dinitrate 15 mg PO BID #30 tablet Metoprolol Tartrate [Lopressor] 25 mg PO BID #60 tab Home Medications: Medication Instructions Recorded Confirmed Type Aspirin [Aspirin EC] 81 mg PO DAILY #30 tablet. 03/19/17 09/15/20 Rx Potassium Chloride 20 meq PO DAILY 10/18/17 09/15/20 History Ranolazine [Ranexa] 500 mg PO BID 10/18/17 09/15/20 History Rosuvastatin [Crestor] 5 mg PO HS 10/18/17 09/15/20 History Ezetimibe [Zetia] 10 mg PO DAILY 09/15/20 09/15/20 History Insulin Degludec [Tresiba 10 units SC DAILY 09/15/20 09/15/20 History Flextouch U-100] Metoclopramide HCl [Reglan] 10 mg PO QID PRN 09/15/20 09/15/20 History Isosorbide Dinitrate 15 mg PO BID #30 tablet 09/18/20 Rx Metoprolol Tartrate [Lopressor] 25 mg PO BID #60 tab 09/18/20 Rx Allergies: adhesive tape Allergy (Verified 09/15/20 21:46) aliskiren hemifumarate [From Tekturna] Allergy (Verified 09/15/20 21:46) amoxicillin Allergy (Verified 09/15/20 21:46) bacitracin [From Triple Antibiotic] Allergy (Verified 09/15/20 21:46) bacitracin zinc [From Triple Antibiotic] Allergy (Verified 09/15/20 21:46) cephalexin monohydrate [From Keflex] Allergy (Verified 09/15/20 21:46) clonidine HCl [From Catapres] Allergy (Verified 09/15/20 21:46) Iodine and Iodide Containing Produc Allergy (Verified 09/15/20 21:46) lisinopril Allergy (Verified 09/15/20 21:46) loratadine [From Claritin] Allergy (Verified 09/15/20 21:46) metformin HCl [From Glucophage] Allergy (Verified 09/15/20 21:46) metoprolol succinate [From Toprol XL] Allergy (Verified 09/15/20 21:46) metronidazole Allergy (Verified 09/15/20 21:46) moexipril HCl [From Univasc] Allergy (Verified 09/15/20 21:46) neomycin sulfate [From Triple Antibiotic] Allergy (Verified 09/15/20 21:46) nitrofurantoin macrocrystalline [From Macrodantin] Allergy (Verified 09/15/20 21:46) Penicillins Allergy (Verified 09/15/20 21:46) polymyxin B [From Triple Antibiotic] Allergy (Verified 09/15/20 21:46) polymyxin B sulfate [From Triple Antibiotic] Allergy (Verified 09/15/20 21:46) ramipril [From Altace] Allergy (Verified 09/15/20 21:46) ranolazine [From Ranexa] Allergy (Verified 09/15/20 21:46) Sulfa (Sulfonamide Antibiotics) Allergy (Verified 09/15/20 21:46) - Discharge Instructions Activity:: Activity as Tolerated - Follow up Plan Referrals: [facility] [Outside] Igor Santos MD [Primary Care Provider] - Disposition: HOSPICE-HOME Quality - Care Measures CORE MEASURES:: N/A (Was discharged on Home Hospice)
--- NOTE | 2020-09-21 04:45 | PQF ---
CLINICAL DOCUMENTATION CLARIFICATION FORM: Dear : Raghavendra Estes Date / Time: 09/21/20 9141 Please exercise your independent, professional judgment in responding to the clarification form. Clinical indicators are provided on the bottom of this form for your review Please check appropriate box(es): [X ] Encephalopathy: Etiology: [X ] Metabolic [ ] Toxic [ ] In the setting of underlying dementia [ ] Unspecified [ ] Other (please specify) [ ] Transient Alteration of Awareness [ ] Other diagnosis [ ] Unable to determine In addition, please specify: Present on Admission (POA): [ X ] Yes [ ] No [ ] Unable to determine Physician Signature: Date/Time: For continuity of documentation, please document condition throughout progress notes and discharge summary. Thank You. To be completed by CDI/Coding staff for physician review: Present Clinical Indicators - Signs / Symptoms / Labs Results and Location in Medical Record [X] Creatinine 2.15, BUN 27, GFR 22 Laboratory 09/15 [X] BP 100/64, Pulse 93, Resp 18, Resp 98.8 Vital signs 09/15 [X] Dehydration ED notes p8 09/15 [X] Decreased oral intake and increased swelling of lower extremities H&P p1 09/15 Dr Voss [X] She was found to have mild Rhabdo and worsening renal function H&P p2 09/15 Dr Voss [X] Abnormal troponin, could be due to her kidney insufficiency H&P p2 09/15 Dr Voss [X] She had advance dementia, and is confused Hpn p1 09/16 Dr Estes [X] Oriented only to self ED notes 09/15 [X] Disoriented HP 09/15 Present Risk Factors Results and Location in Medical Record [X] 84 year-old Female H&P p1 09/15 DR Voss [X] CAD s/p CABG H&P p1 09/15 DR Voss [X] DM H&P p1 09/15 DR Voss [X] Obesity H&P p1 09/15 DR Voss [X] CKD H&P p1 09/15 DR Voss [X] CHF H&P p1 09/15 DR Voss [X] HTN H&P p1 09/15 DR Rouhana [X] Dementia H&P p1 09/15 DR Voss [X] UTI H&P p1 09/15 DR Voss Present Treatments Results and Location in Medical Record [X] IVF NS 1L JAN 17 [X] IV Levaquin 1 gm JAN 17 [X] Series of Creatinine and BUN Laboratory 09/15 [X] Gentle hydration H&P p3 09/15 DR Voss CDS/Larry Operator Signature: Connie Mendoza Phone #: [phone] Date/Time: 09/21/2020 0440 This is a permanent part of the Medical Record [facility]
--- NOTE | 2020-09-21 04:46 | PQF ---
CLINICAL DOCUMENTATION CLARIFICATION FORM: Dear : Raghavendra Estes Date / Time: 09/21/20 3735 Please exercise your independent, professional judgment in responding to the clarification form. Clinical indicators are provided on the bottom of this form for your review Please check appropriate box(es): [X ] Acute Renal Failure (ARF) / Acute Kidney Injury (HAO) [ ] Acute Tubular Necrosis (ATN) [ ] Acute Cortical Necrosis [ ] Acute Medullary Necrosis [ ] Acute on Chronic Renal Failure [ ] CKD without ARF/HAO [ ] Other diagnosis [ ] Unable to determine In addition, please specify: Present on Admission (POA): [ X] Yes [ ] No [ ] Unable to determine Physician Signature: Date/Time: For continuity of documentation, please document condition throughout progress notes and discharge summary. Thank You. To be completed by CDI/Coding staff for physician review: Present Clinical Indicators - Signs / Symptoms / Labs Results and Location in Medical Record [X] Creatinine 2.15, BUN 27, GFR 22 Laboratory 09/15 [X] Creatinine 1.86, BUN 25, GFR 26 Laboratory 09/16 [X] BP 100/64, Pulse 93, Resp 18, Resp 98.8 Vital signs 09/15 [X] Dehydration ED notes p8 09/15 [X] Decreased oral intake and increased swelling of lower extremities H&P p1 09/15 DR Voss [X] She was found to have mild Rhabdo and worsening renal function H&P p2 09/15 DR Voss Abnormal troponin, could be due to her kidney insufficiency H&P p2 09/15 DR Voss Present Risk Factors Results and Location in Medical Record [X] 84 year-old Female H&P p1 09/15 DR Voss [X] CAD s/p CABG H&P p1 09/15 DR Voss [X] DM H&P p1 09/15 DR Voss [X] Obesity H&P p1 09/15 DR Voss [X] CKD H&P p1 09/15 DR Voss [X] CHF H&P p1 09/15 DR Voss [X] HTN H&P p1 09/15 DR Voss [X] Dementia H&P p1 09/15 DR Voss [X] UTI H&P p1 09/15 DR Voss Present Treatments Results and Location in Medical Record [X] IVF NS 1L MAR 09/15 [X] Series of Creatinine and BUN Laboratory 09/15 [X] Gentle hydration H&P p3 09/15 DR Voss CDS/Soaker Meat Signature: Connie Mendoza Phone #: [phone] Date/Time: 09/21/2020 8288 This is a permanent part of the Medical Record [facility]
--- NOTE | 2020-09-29 17:50 | EKG ---
Test Reason : Blood Pressure : / mmHG Vent. Rate : 076 BPM Atrial Rate : 076 BPM P-R Int : 204 ms QRS Dur : 086 ms QT Int : 414 ms P-R-T Axes : 066 033 012 degrees QTc Int : 465 ms Normal sinus rhythm Septal infarct , age undetermined Abnormal ECG Confirmed by JOSH CH, LISSET ([id number]), development editor AYAH BRANCH ([id number]) on 09/29/2020 5:50:24 PM Referred By: Confirmed By:LISSET MORENO MD
== END 2020-09-18 17:01 | disposition hospice, home (50) | DRG 689 ==
LOC: ERS 14:51 → 2NO 20:12 → T4-A 09-17 17:47
PROVIDERS: ADMIT Internal Medicine; ATTEND Internal Medicine
DX: N39.0 Urinary tract infection, site not specified (principal); G93.41 Metabolic encephalopathy; N17.9 Acute kidney failure, unspecified; I13.0 Hypertensive heart and chronic kidney disease with heart failure and stage 1 through stage 4 chronic kidney disease, or unspecified chronic kidney disease; I50.32 Chronic diastolic (congestive) heart failure; M62.82 Rhabdomyolysis; N18.4 Chronic kidney disease, stage 4 (severe); Z51.5 Encounter for palliative care; I25.10 Atherosclerotic heart disease of native coronary artery without angina pectoris; I12.9 Hypertensive chronic kidney disease with stage 1 through stage 4 chronic kidney disease, or unspecified chronic kidney disease; E11.22 Type 2 diabetes mellitus with diabetic chronic kidney disease; B96.89 Other specified bacterial agents as the cause of diseases classified elsewhere; Z20.828 Contact with and (suspected) exposure to other viral communicable diseases; K21.9 Gastro-esophageal reflux disease without esophagitis; E78.00 Pure hypercholesterolemia, unspecified; E03.9 Hypothyroidism, unspecified; E66.9 Obesity, unspecified; F03.90 Unspecified dementia, unspecified severity, without behavioral disturbance, psychotic disturbance, mood disturbance, and anxiety; E86.0 Dehydration; Z95.5 Presence of coronary angioplasty implant and graft; Z90.49 Acquired absence of other specified parts of digestive tract; Z90.710 Acquired absence of both cervix and uterus; Z95.1 Presence of aortocoronary bypass graft; Z68.32 Body mass index [BMI] 32.0-32.9, adult; Z88.2 Allergy status to sulfonamides; Z88.8 Allergy status to other drugs, medicaments and biological substances; Z88.1 Allergy status to other antibiotic agents; Z91.041 Radiographic dye allergy status; Z79.899 Other long term (current) drug therapy; Z79.82 Long term (current) use of aspirin; Z79.4 Long term (current) use of insulin
CPT/HCPCS: 36415; 36416; 51701; 71045; 74176; 80048; 80053; 81003; 81015; 82550; 82553; 83605; 83690; 83880; 84484; 85025; 87040; 87086; 87635; 93005; 93970; 96361; 96365; 96367; 96375; J0744; J1644; J1815; J1956; J2405; J3370; U0003